=== PATIENT | female | born 1975 | race Caucasian/White ===

== ENCOUNTER 2018-03-24 08:16 | Outpatient (CLI) | payer OTHER ==
--- NOTE | 2018-03-24 11:00 | MMO ---
BILATERAL DIGITAL SCREENING MAMMOGRAMS: Date: 03/24/18 This patient's mammogram was interpreted with the assistance of computer-aided detection. Baseline exam. FINDINGS: The breast tissue is heterogeneously dense, which may reduce the sensitivity of mammography. No suspi cious masses, calcifications, or architectural distortion seen. IMPRESSION: BIRADS 1: Negative Return to annual mammographic screening. POS: [facility]
== END 2018-03-24 08:17 | disposition home or self-care (01) ==
LOC: SCSMAMMO 08:16
PROVIDERS: ATTEND Physician Assistant
DX: Z12.31 Encounter for screening mammogram for malignant neoplasm of breast (principal)
CPT/HCPCS: 77067